=== PATIENT | female | born 1995 | race Caucasian/White ===

== ENCOUNTER 2018-10-12 19:49 | Emergency (ER) | payer MEDICAID ==
[~2018-10-12] VITALS: Ht 165.1 cm; Wt 56.0 kg
[2018-10-12] MEDS ORDERED: ACETAMINOPHEN 325MG TABLET PO STA (21:55)
[2018-10-12 23:45] VITALS: BP 131/61
== END 2018-10-12 23:57 | disposition home or self-care (01) ==
LOC: ER 19:49
DX: S63.693A Other sprain of left middle finger, initial encounter (principal); Y08.89XA Assault by other specified means, initial encounter; Y93.89 Activity, other specified; Y92.89 Other specified places as the place of occurrence of the external cause; Y99.8 Other external cause status
CPT/HCPCS: 73140; 81025; 99283